=== PATIENT | male | born 1985 | race Caucasian/White ===

== ENCOUNTER 2019-11-14 20:35 | Emergency (ER) | payer SELFPAY ==
[~2019-11-14] VITALS: Ht 180.3 cm; Wt 112.5 kg
[2019-11-14 20:46] VITALS: BP 120/78; Ht 180.3 cm; Wt 112.5 kg
== END 2019-11-14 22:45 | disposition home or self-care (01) ==
LOC: ED 20:35
DX: S42.031A Displaced fracture of lateral end of right clavicle, initial encounter for closed fracture (principal); X58.XXXA Exposure to other specified factors, initial encounter; Y93.K1 Activity, walking an animal; Y92.89 Other specified places as the place of occurrence of the external cause; Y99.8 Other external cause status